=== PATIENT | female | born 1985 | race Caucasian/White ===

== ENCOUNTER 2024-01-16 09:03 | Emergency (ER) | payer OTHER, SELFPAY ==
[2024-01-16 09:12] VITALS: BP 126/86; PULSE 104; RESP 16; TEMP 37; O2SAT 99
--- NOTE | 2024-01-16 09:52 | ED.SKABFB ---
HPI - Skin/Abscess/Foreign Bdy General Chief complaint: Skin/Abscess/Foreign Body Stated complaint: ABSCESS Time Seen by Provider: 01/16/24 09:16 Source: patient and RN notes reviewed Mode of arrival: ambulatory Limitations: no limitations History of Present Illness HPI narrative: Patient presents today stating that she has a pilonidal abscess x4 days that has been worsening since onset. Denies any drainage. She has tried Tylenol and warm compresses. She has had something similar approximately 14 years ago that was drained in her PCPs office. Related Data Allergies Allergy/AdvReac Type Severity Reaction Status Date / Time No Known Allergies Allergy Verified 01/16/24 09:23 Review of Systems Review of Systems: CONSTITUTIONAL: Denies body aches, fever, chills, or sweats. EYES: Denies visual changes, redness, or discharge. ENT: Denies rhinorrhea, congestion, sore throat, or otalgia. CARDIOVASCULAR: Denies chest pain, palpitations, or edema. RESPIRATORY: Denies cough or dyspnea. GASTROINTESTINAL: Denies abdominal pain, nausea, vomiting, or diarrhea. GENITOURINARY: Denies dysuria or hematuria. SKIN: + abscess MUSCULOSKELETAL: Denies back pain, joint pain, or myalgia. NEUROLOGIC: Denies headache, numbness, tingling, or weakness. PSYCH: Denies depression or anxiety. FOR[facility], [facility] Social History Social History Alcohol intake: never Comments At time of signature, I have reviewed and agree with nursing past medical, surgical, social and family history unless otherwise noted. Please see nursing chart for further information. There is no relevant family history pertinent to the presenting complaint Exam Narrative: GENERAL: Well-appearing, well-nourished, and in no acute distress. HEAD: Normocephalic, atraumatic. EYES: EOMI. No redness or drainage. Conjunctivae normal. ENT: Mucous membranes pink and moist. NECK: Normal AROM. CHEST: No respiratory distress. EXTREMITIES: Normal range of motion. No edema. SKIN: Warm, dry, no rash. Capillary refill normal. Normal skin turgor. 2 x 1.5 cm fluctuant lesion to the right gluteal cleft with mild surrounding erythema and induration. The induration has extended to the left side. Tender to palpation. No active drainage. NEURO: No focal deficits. Alert and oriented x3. Gait steady. PSYCH: Normal affect. No signs of depression or anxiety. Course Course Level of Care: Express Care Visit Vital Signs Vital signs: Vital Signs Temperature 98.6 F 01/16/24 09:12 Pulse Rate 104 H 01/16/24 09:12 Respiratory Rate 16 01/16/24 09:12 Blood Pressure 126/86 01/16/24 09:12 Pulse Oximetry 99 01/16/24 09:12 Temperature 98.6 F 01/16/24 09:12 Pulse Rate 104 H 01/16/24 09:12 Respiratory Rate 16 01/16/24 09:12 Blood Pressure 126/86 01/16/24 09:12 Pulse Oximetry 99 01/16/24 09:12 Reviewed Procedures Abscess I/D pilonidal: Date of Incision: 01/16/24 Time of Incision: 09:30 Local Anesthetic: lidocaine 1% and with epi Amount of anesthesia used (mL): 3.5 Technique: incised with #11 blade Amount of fluid expressed (mL): 5 Irrigation: Yes Packing used?: iodoform I&D Results: Pus and Blood Abcess I&D Additional Comments: Cleansed Betadine prior to procedure. Dressed with large Band-Aid. Patient tolerated procedure well MDM - Skin/Abscess/Foreign Bdy MDM Narrative Medical decision making narrative: Patient's pilonidal abscess has been lanced and drained. She will be placed on a course of Bactrim. Care instructions given. Differential Diagnosis Differential diagnosis: Likely abscess of skin or subcutaneous tissue and cellulitis Critical Care Time Critical Care Time Critical Care Time: No Discharge Plan Discharge Clinical Impression: Pilonidal abscess Patient Disposition: Home, Self-Care Condition: Stable I
[2024-01-16] MEDS: LIDO 1%/EPINEPHRINE 1:100,000 20 ML VIAL 5 ML INFILTRATE (09:57)
== END 2024-01-16 10:04 | disposition home or self-care (01) ==
PROVIDERS: Emergency Provider Nurse Practitioner
DX: L05.01 Pilonidal cyst with abscess (principal)
CPT/HCPCS: 10080; 99213; G0463